=== PATIENT | female | born 1985 | race Caucasian/White ===

== ENCOUNTER 2016-10-26 05:18 | Inpatient (IN) | payer OTHER ==
[~2016-10-26] VITALS: Ht 167.6 cm; Wt 93.0 kg
[2016-10-26 05:25] VITALS: BP 125/75
[2016-10-26] MEDS ORDERED: OXYTOCIN 30U/ 0.9% NaCL 500ML 500 ML IV ONE (06:14)
[2016-10-26] MEDS ORDERED: AMPICILLIN 2 GM in SODIUM CHLORIDE 0.9% 100 ML IVPB STA (06:14)
[2016-10-26] MEDS: D5%-LACTATED RINGERS 1,000 ML IV SCH ×2 (06:14→14:14)
[2016-10-26] MEDS: LACTATED RINGERS 1,000 ML IV SCH ×3 (06:25→15:22)
[2016-10-26] MEDS ORDERED: ONDANSETRON 2MG/ML, 2ML IVPush PRN (06:30)
[2016-10-26] MEDS ORDERED: CALCIUM CARBONATE 500 MG TAB.CHEW PO PRN ×2 (06:30→18:30)
[2016-10-26] MEDS ORDERED: TERBUTALINE 1 MG/ML, 1ML IVPush PRN (06:30)
[2016-10-26] MEDS ORDERED: FENTANYL PF 100 MCG/2ML IVPush PRN (06:30)
[2016-10-26] MEDS ORDERED: FENTANYL PF 100 MCG/2ML IV PRN (06:30)
[2016-10-26 06:36] LABS: HEMATOCRIT 35.6 % (34.6-47.8); HEMOGLOBIN 11.9 g/dL (11.7-16.4); WHITE BLOOD COUNT 9.4 x10^3/uL (3.4-10)
[2016-10-26] MEDS ORDERED: BUPIVACAINE 0.25% ONE (07:16)
[2016-10-26] MEDS ORDERED: FENTANYL PF 100 MCG/2ML ONE (07:16)
[2016-10-26] MEDS ORDERED: FENTANYL/BUPIV./NS/PF 250 ML EPIDCONT ONE (07:16)
[2016-10-26] MEDS ORDERED: NEWBORN KIT ONE (07:17)
[2016-10-26] MEDS ORDERED: LACTATED RINGERS 1,000 ML INTUTE PRN (09:00)
[2016-10-26] MEDS ORDERED: LACTATED RINGERS 1,000 ML INTUTE SCH (09:00)
[2016-10-26] MEDS ORDERED: LIDOCAINE/PF 1.5%-EPI 1:200K, 30ML ONE (09:05)
[2016-10-26] MEDS ORDERED: AMPICILLIN 1 GM in SODIUM CHLORIDE 0.9% 50 ML IVPB SCH (10:30)
[2016-10-26] MEDS ORDERED: OXYTOCIN 30U/ 0.9% NaCL 500ML 500 ML IV PRN (10:39)
[2016-10-26] MEDS ORDERED: OXYTOCIN 30U/ 0.9% NaCL 500ML 0 ML ONE (10:42)
[2016-10-26] MEDS: PENICILLIN GK 2,500,000 UNITS in DEXTROSE 5% 100 ML IVPB SCH ×2 (10:46→14:36)
[2016-10-26] MEDS ORDERED: ONDANSETRON 2MG/ML, 2ML ONE (15:19)
[2016-10-26] MEDS ORDERED: MISOPROSTOL 200 MCG TABLET ONE (17:20)
[2016-10-26] MEDS ORDERED: MEASLES,MUMPS&RUBELLA VACC/PF 0.5 ML SQ-VACC PRN (18:30)
[2016-10-26] MEDS ORDERED: ACETAMINOPHEN 325 MG TABLET PO PRN ×2 (18:30)
[2016-10-26] MEDS ORDERED: GLYCERIN ADULT SUPP PR PRN (18:30)
[2016-10-26] MEDS ORDERED: CARBOPROST TROMETHAMINE 250 MCG/ML, 1ML IM PRN (18:30)
[2016-10-26] MEDS ORDERED: RHOGAM FROM BLOOD BANK 1 NOTE EA IM/IV ONE (18:30)
[2016-10-26] MEDS ORDERED: MISOPROSTOL 200 MCG TABLET PR ONE (18:30)
[2016-10-26] MEDS ORDERED: BISACODYL 10 MG SUPP PR PRN (18:30)
[2016-10-26] MEDS ORDERED: ONDANSETRON 2MG/ML, 2ML IV PRN (18:30)
[2016-10-26] MEDS ORDERED: HYDROcodone/APAP 10/325 MG TABLET PO PRN (18:30)
[2016-10-26] MEDS ORDERED: METHYLERGONOVINE 0.2 MG/ML IM PRN (18:30)
[2016-10-26] MEDS ORDERED: MAGNESIUM HYDROXIDE 8%, 30ML UDC PO PRN (18:30)
[2016-10-26] MEDS ORDERED: METOCLOPRAMIDE 5 MG/ML, 2ML IV PRN (18:30)
[2016-10-26] MEDS ORDERED: DIPH,PERTUSS(ACELL),TET VAC/PF NC IM-VACC PRN (18:30)
[2016-10-26] MEDS ORDERED: HYDROcodone/APAP 5/325 TABLET PO PRN (18:30)
[2016-10-26] MEDS ORDERED: MISOPROSTOL 200 MCG TABLET PR PRN (18:30)
[2016-10-26] MEDS ORDERED: IBUPROFEN 600 MG TABLET ONE (18:38)
[2016-10-26] MEDS ORDERED: OXYTOCIN 30U/ 0.9% NaCL 500ML 500 ML ONE ×2 (18:40→19:28)
[2016-10-26] MEDS: OXYTOCIN 30U/ 0.9% NaCL 500ML 500 ML IV SCH (18:42)
[2016-10-26] MEDS: IBUPROFEN 600 MG TABLET PO PRN (18:43)
[2016-10-26 20:10] VITALS: BP 111/72
[2016-10-27 00:30] VITALS: BP 118/78
[2016-10-27] MEDS: IBUPROFEN 600 MG TABLET PO PRN ×3 (03:54→20:29)
[2016-10-27 04:10] VITALS: BP 110/72
[2016-10-27] MEDS: OXYTOCIN 30U/ 0.9% NaCL 500ML 500 ML IV SCH ×2 (04:30→14:30)
[2016-10-27 06:16] LABS: HEMATOCRIT 32.6 % (34.6-47.8); HEMOGLOBIN 10.8 g/dL (11.7-16.4); WHITE BLOOD COUNT 14.4 x10^3/uL (3.4-10)
[2016-10-27 08:00] VITALS: BP 109/68
[2016-10-27] MEDS: PRENATAL VIT/IRON/FA 1 EACH TABLET PO SCH (08:33)
[2016-10-27] MEDS: DOCUSATE 100 MG CAPSULE PO PRN ×2 (08:33→20:29)
[2016-10-27 12:32] VITALS: BP 116/74
[2016-10-27 20:00] VITALS: BP 121/70
[2016-10-28] MEDS: OXYTOCIN 30U/ 0.9% NaCL 500ML 500 ML IV SCH (00:30)
[2016-10-28] MEDS ORDERED: IBUP-1222 PO (03:07)
[2016-10-28 07:35] VITALS: BP 112/74
[2016-10-28] MEDS: DOCUSATE 100 MG CAPSULE PO PRN (08:19)
[2016-10-28] MEDS: IBUPROFEN 600 MG TABLET PO PRN (08:19)
[2016-10-28] MEDS: PRENATAL VIT/IRON/FA 1 EACH TABLET PO SCH (08:19)
== END 2016-10-28 12:38 | disposition home or self-care (01) | DRG 775 ==
LOC: LDOP 05:18 → LDIP 06:00 → 2NW 19:57
PROVIDERS: ADMIT Specialist; ATTEND Specialist
PROC: 10E0XZZ Delivery of Products of Conception, External Approach (ICD-10-PCS; principal; 2016-10-26)
PROC: 0UQGXZZ Repair Vagina, External Approach (ICD-10-PCS; 2016-10-26)
PROC: 3E0S3CZ (ICD-10-PCS; 2016-10-26)
PROC: 00HU33Z Insertion of Infusion Device into Spinal Canal, Percutaneous Approach (ICD-10-PCS; 2016-10-26)
DX: O99.824 Streptococcus B carrier state complicating childbirth (principal); O77.0 Labor and delivery complicated by meconium in amniotic fluid; O69.1XX0 Labor and delivery complicated by cord around neck, with compression, not applicable or unspecified; Z3A.39 39 weeks gestation of pregnancy; Z37.0 Single live birth; O71.4 Obstetric high vaginal laceration alone
CPT/HCPCS: 36415; 85025; 86850; 86900; 90715; J0290; J2405; J2540; J3010; J3490; J2590; J7120